=== PATIENT | female | born 1955 | race African-American/Black ===

== ENCOUNTER 2017-11-14 05:51 | Inpatient (IN) | payer OTHER ==
[2017-11-14] MEDS: INSULIN ASPART [NOVOLOG] 3 ML PEN SC ×3 (07:17→21:00)
[2017-11-14] MEDS ORDERED: MIDAZOLAM 1 MG/ML 2 ML INJ (07:18)
[2017-11-14] MEDS ORDERED: PROPOFOL 40 ML (07:18)
[2017-11-14] MEDS ORDERED: SUCCINYLCHOLINE CHLORIDE 100 MG/5 ML SYG IV ×2 (07:18→08:58)
[2017-11-14] MEDS ORDERED: ROCURONIUM 50 MG INJ ×2 (07:18→08:58)
[2017-11-14] MEDS ORDERED: morphine SULFATE/PF (10 MG/10 ML) INJ (07:18)
[2017-11-14] MEDS ORDERED: ROPIVACAINE 0.5 % 30 ML VIAL (07:20)
[2017-11-14] MEDS: TRANEXAMIC ACID 1,000 MG/10 ML VIAL IV (07:30)
[2017-11-14] MEDS ORDERED: BUPIVACAINE 0.75%/DEXT (SPINAL) 2 ML INJ (07:58)
[2017-11-14] MEDS ORDERED: BUPIVACAINE 0.5% (SDV) 30 ML INJ (07:59)
[2017-11-14] MEDS ORDERED: PHENYLephrine (100 MCG/ML) 5ML SYG (08:35)
[2017-11-14] MEDS ORDERED: DEXAMETHASONE 4 MG/ML 1 ML INJ (08:59)
[2017-11-14] MEDS ORDERED: ONDANSETRON 4 MG INJ (08:59)
[2017-11-14] MEDS ORDERED: KETOROLAC 30 MG INJ (08:59)
[2017-11-14] MEDS ORDERED: ACETAMINOPHEN 1000MG/100ML IV 100 ML (08:59)
[2017-11-14] MEDS ORDERED: METOCLOPRAMIDE 10 MG INJ (08:59)
[2017-11-14] MEDS ORDERED: DIPHENHYDRAMINE 50 MG INJ IV ×2 (09:00)
[2017-11-14] MEDS ORDERED: OXYCODONE/ACETAMINOPHEN (5/325) TAB PO ×2 (09:00)
[2017-11-14] MEDS ORDERED: ACETAMINOPHEN 500 MG TAB PO (09:00)
[2017-11-14] MEDS ORDERED: ONDANSETRON 4 MG INJ IV ×3 (09:00→12:30)
[2017-11-14] MEDS ORDERED: HYDROmorphONE (0.2 MG/ML) 10ML SYG IV ×3 (09:00)
[2017-11-14] MEDS ORDERED: LABETALOL HCL 20MG INJ IV (09:00)
[2017-11-14] MEDS ORDERED: HYDROmorphONE 0.5 MG/0.5 ML SYG IV ×2 (09:00)
[2017-11-14] MEDS ORDERED: EPHEDrine SULFATE 50 MG/5 ML SYG IV (09:00)
[2017-11-14] MEDS ORDERED: NALBUPHINE HCL (10 MG/1 ML) INJ IV (09:00)
[2017-11-14] MEDS ORDERED: FENTAnyl 50 MCG/ML VIAL IV ×3 (09:00)
[2017-11-14] MEDS ORDERED: NALOXONE (0.4 MG/ML) INJ IV (09:00)
[2017-11-14] MEDS ORDERED: ALBUMIN HUMAN 5% 250 ML IV (09:00)
[2017-11-14] MEDS ORDERED: hydrALAzine 20 MG INJ IV (09:00)
[2017-11-14] MEDS ORDERED: morphine 2 MG INJ IV ×2 (09:00)
[2017-11-14] MEDS ORDERED: MEPERIDINE 25 MG INJ IV (09:00)
[2017-11-14] MEDS ORDERED: METOCLOPRAMIDE 10 MG INJ IV (09:00)
[2017-11-14] MEDS ORDERED: CEFAZOLIN 1 GM INJ (09:01)
[2017-11-14] MEDS ORDERED: SUGAMMADEX SODIUM 200 MG/2 ML VIAL IV (09:15)
[2017-11-14] MEDS: POLYMYXIN/BACITRACIN 1L IRRIG (09:33)
[2017-11-14] MEDS ORDERED: CEFAZOLIN 1 GM/50 ML (PMX) 50 ML IVPB (10:45)
[2017-11-14] MEDS: CEFAZOLIN 1 GM/50 ML (PMX) 50 ML IVPB ×2 (10:47→22:00)
[2017-11-14] MEDS ORDERED: GLUCAGON 1 MG INJ IM (12:30)
[2017-11-14] MEDS ORDERED: NACL 0.9% 3 ML SYG IV (12:30)
[2017-11-14] MEDS ORDERED: GLUCOSE GEL 15 GRAM TUBE PO ×2 (12:30)
[2017-11-14] MEDS ORDERED: GLUCOSE GEL 15 GRAM TUBE BUCCAL (12:30)
[2017-11-14] MEDS ORDERED: ACETAMINOPHEN 325 MG TAB PO (12:30)
[2017-11-14] MEDS ORDERED: DEXTROSE 50% 50 ML SYRINGE IV ×2 (12:30)
[2017-11-14 12:39] LABS: ANION GAP 17 (8-16); BLOOD UREA NITROGEN 13 mg/dl (7-20); CALCIUM 8.9 mg/dl (8.4-10.2); CARBON DIOXIDE 28 mmol/L (21-31); CHLORIDE 105 mmol/L (97-110); GLUCOSE 113 mg/dl (70-220); POTASSIUM 3.6 mmol/L (3.5-5.1); SODIUM 146 mmol/L (135-144)
[2017-11-14] MEDS: HYDROCODONE/APAP (5/325) TAB PO (19:40)
[2017-11-14] MEDS: FAMOTIDINE 20 MG INJ IV (22:00)
[2017-11-14] MEDS: ATORVASTATIN 20 MG TAB PO (22:00)
[2017-11-14] MEDS: traZODone 50 MG TAB PO (22:00)
[2017-11-14] MEDS: DICLOFENAC (EC) 75 MG TAB PO (22:00)
[2017-11-15] MEDS: ACCU-CHEK XX (01:55)
[2017-11-15] MEDS: HYDROCODONE/APAP (5/325) TAB PO (03:05)
[2017-11-15] MEDS: KETOROLAC 30 MG INJ IV (04:24)
[2017-11-15] MEDS: CEFAZOLIN 1 GM/50 ML (PMX) 50 ML IVPB ×3 (05:37→21:54)
[2017-11-15 05:43] LABS: ADD MAN DIFF? NO
[2017-11-15 05:49] LABS: WHITE BLOOD COUNT 8.4 10^3/ul (4.8-10.8)
[2017-11-15 05:49] LABS: BASOPHILS % 0.2 % (0.0-2.0); EOSINOPHILS % 0.1 % (0.0-7.0); HEMATOCRIT 27.4 % (37.0-47.0); HEMOGLOBIN 9.2 g/dl (12.0-16.0); LYMPHOCYTES % 24.1 % (15.0-51.0); MEAN CORPUSCULAR HEMOGLOBIN 26.6 pg (29.0-33.0); MEAN CORPUSCULAR HGB CONC 33.6 g/dl (32.0-37.0); MEAN CORPUSCULAR VOLUME 79.2 fl (82.0-101.0); MONOCYTE # 0.7 10^3/ul (0.3-0.9); MONOCYTES % 8.4 % (0.0-11.0); NEUTROPHIL # 5.6 10^3/ul (1.6-7.5); NEUTROPHILS % 66.8 % (39.0-77.0); PLATELET COUNT 138 10^3/UL (140-415); RED BLOOD COUNT 3.46 10^6/ul (4.20-5.40); RED CELL DISTRIBUTION WIDTH 15.9 % (11.5-14.5)
[2017-11-15 06:38] LABS: ANION GAP 15 (8-16); BLOOD UREA NITROGEN 12 mg/dl (7-20); CALCIUM 8.7 mg/dl (8.4-10.2); CARBON DIOXIDE 28 mmol/L (21-31); CHLORIDE 104 mmol/L (97-110); CREATININE 0.55 mg/dl (0.44-1.00); GLUCOSE 123 mg/dl (70-220); POTASSIUM 3.4 mmol/L (3.5-5.1); SODIUM 144 mmol/L (135-144)
[2017-11-15 06:44] LABS: PHOSPHORUS 3.8 mg/dl (2.5-4.9)
[2017-11-15 06:44] LABS: MAGNESIUM 1.6 mg/dl (1.7-2.5)
[2017-11-15] MEDS: INSULIN ASPART [NOVOLOG] 3 ML PEN SC ×4 (07:50→20:25)
[2017-11-15] MEDS: CARISOPRODOL 350 MG TAB PO (08:07)
[2017-11-15] MEDS: morphine 2 MG INJ IV ×3 (08:38→17:43)
[2017-11-15] MEDS: FERROUS SULFATE (EC) 325 MG TAB PO (09:00)
[2017-11-15] MEDS: FAMOTIDINE 20 MG INJ IV ×2 (09:10→20:20)
[2017-11-15] MEDS: DICLOFENAC (EC) 75 MG TAB PO ×2 (09:10→20:20)
[2017-11-15] MEDS: HYDROCODONE/APAP (10/325) TAB PO ×3 (09:11→19:20)
[2017-11-15] MEDS: NIFEdipine (XL) 30 MG TAB PO (09:12)
[2017-11-15] MEDS: METOPROLOL (XL) 25 MG TAB PO (09:12)
[2017-11-15] MEDS: ANASTROZOLE 1 MG TAB PO (09:13)
[2017-11-15] MEDS: POTASSIUM CHLORIDE (SR) 20 MEQ TAB PO (13:14)
[2017-11-15] MEDS: MAGNESIUM SULFATE 2 GM/50 ML 50 ML IVPB (14:40)
[2017-11-15] MEDS: ASPIRIN 325 MG TAB PO ×2 (14:40→20:20)
[2017-11-15] MEDS: DOCUSATE SODIUM 100 MG CAP PO (14:40)
[2017-11-15] MEDS: HYDROCHLOROTHIAZIDE 12.5 MG CAP PO (17:50)
[2017-11-15] MEDS: LOSARTAN 50 MG TAB PO (17:51)
[2017-11-15] MEDS: ATORVASTATIN 20 MG TAB PO (20:20)
[2017-11-15] MEDS: traZODone 50 MG TAB PO (20:20)
[2017-11-16] MEDS: ACCU-CHEK XX (02:00)
[2017-11-16] MEDS: CEFAZOLIN 1 GM/50 ML (PMX) 50 ML IVPB (05:31)
[2017-11-16 05:36] LABS: ADD MAN DIFF? NO
[2017-11-16 05:47] LABS: WHITE BLOOD COUNT 7.9 10^3/ul (4.8-10.8)
[2017-11-16 05:47] LABS: BASOPHILS % 0.5 % (0.0-2.0); EOSINOPHILS # 0.2 10^3/ul (0.0-0.5); HEMATOCRIT 27.3 % (37.0-47.0); HEMOGLOBIN 8.9 g/dl (12.0-16.0); LYMPHOCYTES # 2.4 10^3/ul (0.8-2.9); LYMPHOCYTES % 29.8 % (15.0-51.0); MEAN CORPUSCULAR HGB CONC 32.6 g/dl (32.0-37.0); MEAN CORPUSCULAR VOLUME 79.8 fl (82.0-101.0); MONOCYTE # 0.5 10^3/ul (0.3-0.9); MONOCYTES % 6.3 % (0.0-11.0); NEUTROPHIL # 4.7 10^3/ul (1.6-7.5); NEUTROPHILS % 60.1 % (39.0-77.0); PLATELET COUNT 141 10^3/UL (140-415); RED BLOOD COUNT 3.42 10^6/ul (4.20-5.40); RED CELL DISTRIBUTION WIDTH 16.1 % (11.5-14.5)
[2017-11-16 06:00] LABS: PHOSPHORUS 2.9 mg/dl (2.5-4.9)
[2017-11-16 06:00] LABS: MAGNESIUM 2.1 mg/dl (1.7-2.5)
[2017-11-16 07:00] LABS: ANION GAP 15 (8-16); BLOOD UREA NITROGEN 8 mg/dl (7-20); CALCIUM 8.8 mg/dl (8.4-10.2); CARBON DIOXIDE 30 mmol/L (21-31); CHLORIDE 103 mmol/L (97-110); CREATININE 0.55 mg/dl (0.44-1.00); GLUCOSE 131 mg/dl (70-220); POTASSIUM 3.7 mmol/L (3.5-5.1); SODIUM 144 mmol/L (135-144)
[2017-11-16] MEDS: INSULIN ASPART [NOVOLOG] 3 ML PEN SC ×4 (07:50→21:12)
[2017-11-16] MEDS: FERROUS SULFATE (EC) 325 MG TAB PO (09:00)
[2017-11-16] MEDS: CARISOPRODOL 350 MG TAB PO (09:41)
[2017-11-16] MEDS: HYDROCODONE/APAP (10/325) TAB PO ×3 (09:42→20:01)
[2017-11-16] MEDS: ASPIRIN 325 MG TAB PO ×2 (09:42→21:06)
[2017-11-16] MEDS: DICLOFENAC (EC) 75 MG TAB PO ×2 (09:43→21:06)
[2017-11-16] MEDS: HYDROCHLOROTHIAZIDE 12.5 MG CAP PO (09:43)
[2017-11-16] MEDS: ANASTROZOLE 1 MG TAB PO (09:49)
[2017-11-16] MEDS: LOSARTAN 50 MG TAB PO (09:50)
[2017-11-16] MEDS: NIFEdipine (XL) 30 MG TAB PO (09:51)
[2017-11-16] MEDS: METOPROLOL (XL) 25 MG TAB PO (09:51)
[2017-11-16] MEDS: FAMOTIDINE 20 MG INJ IV (09:51)
[2017-11-16] MEDS ORDERED: morphine LIQ (10 MG/5 ML) CUP PO (17:30)
[2017-11-16] MEDS: FAMOTIDINE 20 MG TAB PO (21:05)
[2017-11-16] MEDS: ATORVASTATIN 20 MG TAB PO (21:05)
[2017-11-16] MEDS: DOCUSATE SODIUM 100 MG CAP PO (21:16)
[2017-11-16] MEDS: traZODone 50 MG TAB PO (21:21)
[2017-11-17] MEDS: ACCU-CHEK XX (02:21)
[2017-11-17 05:11] LABS: ADD MAN DIFF? NO
[2017-11-17 05:17] LABS: BASOPHILS % 0.4 % (0.0-2.0); EOSINOPHILS # 0.3 10^3/ul (0.0-0.5); EOSINOPHILS % 3.4 % (0.0-7.0); HEMATOCRIT 27.4 % (37.0-47.0); HEMOGLOBIN 8.9 g/dl (12.0-16.0); LYMPHOCYTES # 2.1 10^3/ul (0.8-2.9); LYMPHOCYTES % 26.7 % (15.0-51.0); MEAN CORPUSCULAR HEMOGLOBIN 26.1 pg (29.0-33.0); MEAN CORPUSCULAR HGB CONC 32.5 g/dl (32.0-37.0); MEAN CORPUSCULAR VOLUME 80.4 fl (82.0-101.0); MONOCYTE # 0.5 10^3/ul (0.3-0.9); MONOCYTES % 5.9 % (0.0-11.0); NEUTROPHILS % 63.3 % (39.0-77.0); PLATELET COUNT 160 10^3/UL (140-415); RED BLOOD COUNT 3.41 10^6/ul (4.20-5.40); RED CELL DISTRIBUTION WIDTH 15.9 % (11.5-14.5)
[2017-11-17 05:17] LABS: WHITE BLOOD COUNT 7.9 10^3/ul (4.8-10.8)
[2017-11-17 05:37] LABS: ANION GAP 15 (8-16); BLOOD UREA NITROGEN 9 mg/dl (7-20); CALCIUM 8.9 mg/dl (8.4-10.2); CARBON DIOXIDE 32 mmol/L (21-31); CHLORIDE 101 mmol/L (97-110); CREATININE 0.53 mg/dl (0.44-1.00); GLUCOSE 145 mg/dl (70-220); POTASSIUM 3.8 mmol/L (3.5-5.1); SODIUM 144 mmol/L (135-144)
[2017-11-17] MEDS: HYDROCODONE/APAP (10/325) TAB PO ×3 (08:28→23:38)
[2017-11-17] MEDS: DICLOFENAC (EC) 75 MG TAB PO ×2 (08:54→20:57)
[2017-11-17] MEDS: FERROUS SULFATE (EC) 325 MG TAB PO (08:55)
[2017-11-17] MEDS: LOSARTAN 50 MG TAB PO (08:56)
[2017-11-17] MEDS: ASPIRIN 325 MG TAB PO ×2 (08:56→20:57)
[2017-11-17] MEDS: FAMOTIDINE 20 MG TAB PO ×2 (08:57→20:57)
[2017-11-17] MEDS: NIFEdipine (XL) 30 MG TAB PO (08:57)
[2017-11-17] MEDS: HYDROCHLOROTHIAZIDE 12.5 MG CAP PO (08:57)
[2017-11-17] MEDS: METOPROLOL (XL) 25 MG TAB PO (08:57)
[2017-11-17] MEDS: INSULIN ASPART [NOVOLOG] 3 ML PEN SC ×4 (09:00→20:56)
[2017-11-17] MEDS: BISACODYL (EC) 5 MG TAB PO (09:03)
[2017-11-17] MEDS: CARISOPRODOL 350 MG TAB PO (09:03)
[2017-11-17] MEDS: ANASTROZOLE 1 MG TAB PO (09:06)
[2017-11-17] MEDS: traZODone 50 MG TAB PO (20:57)
[2017-11-17] MEDS: ATORVASTATIN 20 MG TAB PO (20:57)
[2017-11-18] MEDS: ACCU-CHEK XX (02:00)
[2017-11-18 05:12] LABS: ADD MAN DIFF? NO
[2017-11-18 05:22] LABS: BASOPHILS % 0.2 % (0.0-2.0); EOSINOPHILS # 0.2 10^3/ul (0.0-0.5); EOSINOPHILS % 2.9 % (0.0-7.0); HEMATOCRIT 25.9 % (37.0-47.0); HEMOGLOBIN 8.6 g/dl (12.0-16.0); LYMPHOCYTES # 1.8 10^3/ul (0.8-2.9); LYMPHOCYTES % 22.3 % (15.0-51.0); MEAN CORPUSCULAR HEMOGLOBIN 26.5 pg (29.0-33.0); MEAN CORPUSCULAR HGB CONC 33.2 g/dl (32.0-37.0); MEAN CORPUSCULAR VOLUME 79.7 fl (82.0-101.0); MONOCYTE # 0.4 10^3/ul (0.3-0.9); MONOCYTES % 5.2 % (0.0-11.0); NEUTROPHIL # 5.5 10^3/ul (1.6-7.5); NEUTROPHILS % 69.2 % (39.0-77.0); PLATELET COUNT 186 10^3/UL (140-415); RED BLOOD COUNT 3.25 10^6/ul (4.20-5.40); RED CELL DISTRIBUTION WIDTH 15.7 % (11.5-14.5)
[2017-11-18 06:08] LABS: ANION GAP 17 (8-16); BLOOD UREA NITROGEN 10 mg/dl (7-20); CALCIUM 8.9 mg/dl (8.4-10.2); CARBON DIOXIDE 31 mmol/L (21-31); CHLORIDE 100 mmol/L (97-110); CREATININE 0.56 mg/dl (0.44-1.00); GLUCOSE 188 mg/dl (70-220); POTASSIUM 3.8 mmol/L (3.5-5.1); SODIUM 144 mmol/L (135-144)
[2017-11-18] MEDS: INSULIN ASPART [NOVOLOG] 3 ML PEN SC ×4 (09:00→21:05)
[2017-11-18] MEDS: FERROUS SULFATE (EC) 325 MG TAB PO (09:00)
[2017-11-18] MEDS: CARISOPRODOL 350 MG TAB PO (09:01)
[2017-11-18] MEDS: ASPIRIN 325 MG TAB PO ×2 (09:01→20:57)
[2017-11-18] MEDS: DICLOFENAC (EC) 75 MG TAB PO ×2 (09:01→20:57)
[2017-11-18] MEDS: FAMOTIDINE 20 MG TAB PO ×2 (09:03→20:57)
[2017-11-18] MEDS: HYDROCODONE/APAP (10/325) TAB PO ×2 (09:03→14:44)
[2017-11-18] MEDS: LOSARTAN 50 MG TAB PO (09:04)
[2017-11-18] MEDS: METOPROLOL (XL) 25 MG TAB PO (09:04)
[2017-11-18] MEDS: HYDROCHLOROTHIAZIDE 12.5 MG CAP PO (09:05)
[2017-11-18] MEDS: NIFEdipine (XL) 30 MG TAB PO (09:05)
[2017-11-18] MEDS: ANASTROZOLE 1 MG TAB PO (09:08)
[2017-11-18] MEDS: BISACODYL (EC) 5 MG TAB PO ×2 (09:12→21:03)
[2017-11-18] MEDS: ATORVASTATIN 20 MG TAB PO (20:57)
[2017-11-18] MEDS: traZODone 50 MG TAB PO (20:57)
[2017-11-19] MEDS ORDERED: BISACODYL (EC) 5 MG TAB PO
[2017-11-19] MEDS: ACCU-CHEK XX (02:20)
[2017-11-19] MEDS: HYDROCODONE/APAP (10/325) TAB PO ×2 (02:56→20:33)
[2017-11-19 05:36] LABS: ADD MAN DIFF? NO
[2017-11-19 05:44] LABS: WHITE BLOOD COUNT 7.4 10^3/ul (4.8-10.8)
[2017-11-19 05:44] LABS: BASOPHILS % 0.1 % (0.0-2.0); EOSINOPHILS # 0.2 10^3/ul (0.0-0.5); EOSINOPHILS % 2.7 % (0.0-7.0); HEMATOCRIT 26.4 % (37.0-47.0); HEMOGLOBIN 8.7 g/dl (12.0-16.0); LYMPHOCYTES % 26.4 % (15.0-51.0); MEAN CORPUSCULAR HEMOGLOBIN 26.1 pg (29.0-33.0); MEAN CORPUSCULAR VOLUME 79.3 fl (82.0-101.0); MEAN PLATELET VOLUME 11.2 fl (7.4-10.4); MONOCYTE # 0.5 10^3/ul (0.3-0.9); NEUTROPHIL # 4.7 10^3/ul (1.6-7.5); NEUTROPHILS % 63.5 % (39.0-77.0); PLATELET COUNT 226 10^3/UL (140-415); RED BLOOD COUNT 3.33 10^6/ul (4.20-5.40); RED CELL DISTRIBUTION WIDTH 15.7 % (11.5-14.5)
[2017-11-19 06:19] LABS: ANION GAP 16 (8-16); BLOOD UREA NITROGEN 11 mg/dl (7-20); CALCIUM 9.1 mg/dl (8.4-10.2); CARBON DIOXIDE 33 mmol/L (21-31); CHLORIDE 99 mmol/L (97-110); CREATININE 0.52 mg/dl (0.44-1.00); GLUCOSE 158 mg/dl (70-220); POTASSIUM 3.9 mmol/L (3.5-5.1); SODIUM 144 mmol/L (135-144)
[2017-11-19] MEDS: HYDROCHLOROTHIAZIDE 12.5 MG CAP PO (09:00)
[2017-11-19] MEDS: FERROUS SULFATE (EC) 325 MG TAB PO (09:00)
[2017-11-19] MEDS: CARISOPRODOL 350 MG TAB PO (09:00)
[2017-11-19] MEDS: ASPIRIN 325 MG TAB PO ×2 (09:40→20:33)
[2017-11-19] MEDS: ANASTROZOLE 1 MG TAB PO (09:43)
[2017-11-19] MEDS: INSULIN ASPART [NOVOLOG] 3 ML PEN SC ×4 (09:44→20:37)
[2017-11-19] MEDS: FAMOTIDINE 20 MG TAB PO ×2 (09:45→20:33)
[2017-11-19] MEDS: DICLOFENAC (EC) 75 MG TAB PO ×2 (09:47→20:33)
[2017-11-19] MEDS: METOPROLOL (XL) 25 MG TAB PO (09:48)
[2017-11-19] MEDS: NIFEdipine (XL) 30 MG TAB PO (09:49)
[2017-11-19] MEDS: LOSARTAN 50 MG TAB PO (09:50)
[2017-11-19] MEDS: BISACODYL 10 MG SUPP PR (17:49)
[2017-11-19] MEDS: ATORVASTATIN 20 MG TAB PO (20:33)
[2017-11-19] MEDS: traZODone 50 MG TAB PO (20:33)
[2017-11-20] MEDS: HYDROCODONE/APAP (10/325) TAB PO ×3 (02:04→18:16)
[2017-11-20] MEDS: ACCU-CHEK XX (02:30)
[2017-11-20 05:26] LABS: ADD MAN DIFF? NO
[2017-11-20 05:33] LABS: BASOPHILS % 0.3 % (0.0-2.0); EOSINOPHILS # 0.2 10^3/ul (0.0-0.5); HEMATOCRIT 24.7 % (37.0-47.0); HEMOGLOBIN 8.1 g/dl (12.0-16.0); LYMPHOCYTES # 2.2 10^3/ul (0.8-2.9); LYMPHOCYTES % 35.5 % (15.0-51.0); MEAN CORPUSCULAR HGB CONC 32.8 g/dl (32.0-37.0); MEAN CORPUSCULAR VOLUME 79.4 fl (82.0-101.0); MEAN PLATELET VOLUME 10.4 fl (7.4-10.4); MONOCYTE # 0.5 10^3/ul (0.3-0.9); MONOCYTES % 8.4 % (0.0-11.0); NEUTROPHIL # 3.3 10^3/ul (1.6-7.5); NEUTROPHILS % 52.5 % (39.0-77.0); NUCLEATED RED BLOOD CELLS% 0.5 /100WBC (0.0-0.0); PLATELET COUNT 233 10^3/UL (140-415); RED BLOOD COUNT 3.11 10^6/ul (4.20-5.40); RED CELL DISTRIBUTION WIDTH 16.1 % (11.5-14.5)
[2017-11-20 05:33] LABS: WHITE BLOOD COUNT 6.3 10^3/ul (4.8-10.8)
[2017-11-20 06:09] LABS: ANION GAP 16 (8-16); BLOOD UREA NITROGEN 11 mg/dl (7-20); CALCIUM 8.9 mg/dl (8.4-10.2); CARBON DIOXIDE 32 mmol/L (21-31); CHLORIDE 100 mmol/L (97-110); CREATININE 0.57 mg/dl (0.44-1.00); GLUCOSE 171 mg/dl (70-220); POTASSIUM 3.8 mmol/L (3.5-5.1); SODIUM 144 mmol/L (135-144)
[2017-11-20] MEDS: CARISOPRODOL 350 MG TAB PO (09:00)
[2017-11-20] MEDS: POLYETHYLENE GLYCOL 17 GM PACKET PO (09:33)
[2017-11-20] MEDS: DICLOFENAC (EC) 75 MG TAB PO (09:33)
[2017-11-20] MEDS: ASPIRIN 325 MG TAB PO (09:33)
[2017-11-20] MEDS: LOSARTAN 50 MG TAB PO (09:33)
[2017-11-20] MEDS: FERROUS SULFATE (EC) 325 MG TAB PO (09:34)
[2017-11-20] MEDS: METOPROLOL (XL) 25 MG TAB PO (09:34)
[2017-11-20] MEDS: HYDROCHLOROTHIAZIDE 12.5 MG CAP PO (09:35)
[2017-11-20] MEDS: NIFEdipine (XL) 30 MG TAB PO (09:35)
[2017-11-20] MEDS: FAMOTIDINE 20 MG TAB PO (09:35)
[2017-11-20] MEDS: INSULIN ASPART [NOVOLOG] 3 ML PEN SC ×3 (09:37→17:55)
[2017-11-20] MEDS: ANASTROZOLE 1 MG TAB PO (09:39)
== END 2017-11-20 19:25 | DRG 470 ==
LOC: REC 05:51 → MS1 12:07
PROVIDERS: Specialist
PROC: 0SRC069 Replacement of Right Knee Joint with Oxidized Zirconium on Polyethylene Synthetic Substitute, Cemented, Open Approach (ICD-10-PCS; principal; 2017-11-14 07:30)
DX: M17.11 Unilateral primary osteoarthritis, right knee (principal); I10 Essential (primary) hypertension; E11.9 Type 2 diabetes mellitus without complications; E78.5 Hyperlipidemia, unspecified; K21.9 Gastro-esophageal reflux disease without esophagitis; M24.561 Contracture, right knee; M21.161 Varus deformity, not elsewhere classified, right knee; Z85.3 Personal history of malignant neoplasm of breast
CPT/HCPCS: 80048; 82962; 83735; 84100; 85014; 85018; 85025; 87086; 88304; 97110; 97116; 97164; 97530